=== PATIENT | male | born 1980 | race Caucasian/White ===

== ENCOUNTER 2021-04-19 08:43 | Outpatient (CLI) | payer OTHER, SELFPAY ==
--- NOTE | ~2021-04-19 | US_ITS ---
EXAMINATION: US thyroid EXAM DATE: 04/19/2021 09:05 INDICATION: E04.9 - Nontoxic goiter, unspecified. TECHNIQUE: Multiple grayscale and Doppler images of the thyroid were obtained (by a technologist who performed the scan) and subsequently reviewed. Individual nodules and recommendations may be reporte d in accordance with TI-RADS system as designated by the 2017 ACR White Paper TI-RADS committee. The re is no prior study for comparison. FINDINGS: The right thyroid lobe measures 5.2 x 2.2 x 1.5 cm, the left measuring 3.6 x 1.5 x 1.5 cm per diffuse ly heterogeneous thyroid echogenicity with increased vascularity. No discrete focal thyroid nodule id entified within this heterogeneity. Left thyroid lobe is mildly enlarged. IMPRESSION: Heterogeneous hypervascular thyroid parenchyma. Reviewed, dictated and finalized at location B. [employer]
== END 2021-04-19 08:44 | disposition home or self-care (01) ==
LOC: ANHIMG 08:47
PROVIDERS: PCP Family Medicine; Visit Provider Nurse Practitioner
DX: E04.9 Nontoxic goiter, unspecified (principal); E03.9 Hypothyroidism, unspecified; R13.10 Dysphagia, unspecified
CPT/HCPCS: 76536